=== PATIENT | male | born 1990 | race Caucasian/White ===

== ENCOUNTER 2016-11-18 11:45 | Observation (INO) | payer OTHER ==
--- NOTE | 2016-11-18 11:55 | PDOC ---
History of Present Illness - General Chief Complaint: Urinary Problem Stated Complaint: THIRST, POLYURIA Time Seen by Provider: 11/18/16 11:52 - History of Present Illness Initial Comments: 11/18/16 13:07 Presents to the ER upon referral by his orthopedic shoe maker. Worsening polyuria, polydipsia, family history of diabetes insipidus. Alert oriented no acute distress fully ambulatory. Physical exam normal. To be admitted for water depravation test. Past History - Past Medical History Allergies/Adverse Reactions: Allergies Allergy/AdvReac Type Severity Reaction Status Date / Time No Known Allergies Allergy Verified 11/18/16 11:50 Home Medications: Ambulatory Orders Desmopressin Acetate 0.5 mg PO HS 11/18/16 Finasteride 2.5 mg PO DAILY 11/18/16 Selegiline HCl 5 mg PO BID 11/18/16 ED Treatment Course - LABORATORY CBC & Chemistry Diagram: 11/18/16 12:10 11/18/16 12:10 *DC/Admit/Observation/Transfer Diagnosis at time of Disposition: Dehydration - Discharge Dispostion Condition at time of disposition: Stable Admit: Yes
[2016-11-18 11:59] VITALS: BMI 30.9
[2016-11-18 12:20] LABS: PH,URINE 5.5 (4.5-8); URINE APPEARANCE Clear; URINE BILIRUBIN Negative (NEGATIVE); URINE BLOOD Negative (NEGATIVE); URINE GLUCOSE (UA) Negative (NEGATIVE); URINE KETONE Negative (NEGATIVE); URINE LEUK ESTERASE Negative (NEGATIVE); URINE NITRITE Negative (NEGATIVE); URINE PROTEIN Negative (NEGATIVE); URINE UROBILINOGEN 0.2 E.U/dl (0.2-1.0)
[2016-11-18 12:31] LABS: URINE COLOR COLORLESS
[2016-11-18 12:34] LABS: BASOPHIL 1.3 % (0-2.0); EOSINOPHIL 2.4 % (0-4.5); MCH 29.2 pg (25.7-33.7); MCHC 33.6 g/dl (32.0-35.9); MEAN PLT VOLUME 9.4 fl (7.5-11.1); NEUTROPHILS 64.4 % (42.8-82.8); PLATELET COUNT 223 K/MM3 (134-434); RDW 12.4 % (11.9-15.9); WHITE BLOOD COUNT 4.3 K/mm3 (4.0-10.8)
[2016-11-18 12:42] LABS: ALBUMIN 4.8 g/dl (3.5-5.0); ALK PHOS 57 U/L (32-92); ANION GAP 8 (8-16); BILIRUBIN,TOTAL 0.4 mg/dl (0.2-1.0); CO2 22 mmol/L (22-28); GLUCOSE,RANDOM 94 mg/dl (74-106); SGOT/AST 25 U/L (10-42); SGPT/ALT 23 U/L (10-40); TOT PROT 7.1 g/dl (6.4-8.3)
--- NOTE | 2016-11-18 12:58 | HP ---
[id number]: patient is a 26 y/o male, with no significant past medical history. patient reports polyuria and polydipsia for the past 8 months. He was evaluated by the quote clerk Dr. Bala Mayfield and was started on desmopressin 0.5 mg at bedtime. reports drinking more than a gallon of water daily and awakes multiple times throughout the night to urinate. Patient's last dose of desmopressin was 11/16/2016 at night. Patient does report increased polyuria within the past month and was referred to the emergency department for admission. ER course was notable for: (1) urine sodium 141 (2) (3) Recent Travel: none PAST MEDICAL HISTORY: none PAST SURGICAL HISTORY:none Social History:employed as a movie writer resides at home with his [facility] Smoking: none Alcohol:none Drugs: none Family History: sister- pituitary adenoma diabetes insipidus sister- benign brain tumor Allergies No Known Allergies Allergy (Verified 11/18/16 11:50) HOME MEDICATIONS: Home Medications Medication Instructions Recorded Desmopressin Acetate 0.5 mg PO HS 11/18/16 Finasteride 2.5 mg PO DAILY 11/18/16 Selegiline HCl 5 mg PO BID 11/18/16 REVIEW OF SYSTEMS CONSTITUTIONAL: Absent: fever, chills, diaphoresis, generalized weakness, malaise, loss of appetite, weight change HEENT: Absent: rhinorrhea, nasal congestion, throat pain, throat swelling, difficulty swallowing, mouth swelling, ear pain, eye pain, visual changes CARDIOVASCULAR: Absent: chest pain, syncope, palpitations, irregular heart rate, lightheadedness , peripheral edema RESPIRATORY: Absent: cough, shortness of breath, dyspnea with exertion, orthopnea, wheezing, stridor, hemoptysis GASTROINTESTINAL: Absent: abdominal pain, abdominal distension, nausea, vomiting, diarrhea, constipation, melena, hematochezia GENITOURINARY: Absent: dysuria, frequency, urgency, hesitancy, hematuria, flank pain, genital pain MUSCULOSKELETAL: Absent: myalgia, arthralgia, joint swelling, back pain, neck pain SKIN: Absent: rash, itching, pallor HEMATOLOGIC/IMMUNOLOGIC: Absent: easy bleeding, easy bruising, lymphadenopathy, frequent infections ENDOCRINE: present polyuria Absent: unexplained weight gain, unexplained weight loss, heat intolerance, cold intolerance NEUROLOGIC: Absent: headache, focal weakness or paresthesias, dizziness, unsteady gait, seizure, mental status changes, bladder or bowel incontinence PSYCHIATRIC: Absent: anxiety, depression, suicidal or homicidal ideation, hallucinations. PHYSICAL EXAMINATION Vital Signs - 24 hr 11/18/16 11:45 Temperature 98.1 F Pulse Rate 81 Respiratory 18 Rate Blood Pressure 145/93 O2 Sat by Pulse 99 Oximetry (%) GENERAL: Awake, alert, and fully oriented, in no acute distress. HEAD: Normal with no signs of trauma. EYES: Pupils equal, round and reactive to light, extraocular movements intact, sclera anicteric, conjunctiva clear. No lid lag. EARS, NOSE, THROAT: Ears normal, nares patent, oropharynx clear without exudates. Moist mucous membranes. NECK: Normal range of motion, supple without lymphadenopathy, JVD, or masses. LUNGS: Breath sounds equal, clear to auscultation bilaterally. No wheezes, and no crackles. No accessory muscle use. HEART: Regular rate and rhythm, normal S1 and S2 without murmur, rub or gallop. ABDOMEN: Soft, nontender, not distended, normoactive bowel sounds, no guarding, no rebound, no masses. No hepatomegaly or splenomegaly. MUSCULOSKELETAL: Normal range of motion at all joints. No bony deformities or tenderness. No CVA tenderness. UPPER EXTREMITIES: 2+ pulses, warm, well-perfused. No cyanosis. No clubbing. No peripheral edema. LOWER EXTREMITIES: 2+ pulses, warm, well-perfused. No calf tenderness. No peripheral edema. NEUROLOGICAL: Cranial nerves II-XII intact. Normal speech. Normal gait. PSYCHIATRIC: Cooperative. Good eye contact. Appropriate mood and affect. SKIN: Warm, dry, normal turgor, no rashes or lesions noted, normal capillary refill. Laboratory Results - last 24 hr 11/18/16 11:58 Urine Color Colorless Urine Appearance Clear Urine pH 5.5 Ur Specific [place] <= 1.005 Urine Protein Negative Urine Glucose (UA) Negative Urine Ketones Negative Urine Blood Negative Urine Nitrite Negative Urine Bilirubin Negative Urine Urobilinogen 0.2 e.u/dl Ur Leukocyte Esterase Negative ASSESSMENT/PLAN: 1) endocrine: r/o diabetes insipidus - Serum sodium urine osmolality and serum osmolality noted - Urine osmolality every hour and serum osmolality and ADH every 2 hours - when urine osmolality reaches greater than 600 discontinue water deprivation test -If urine osmolality is stable on 2-3 hourly measurements, despite raising plasma osmolarity will order desmopressin 4 mcg IV - After desmopressin administration monitor urine volume and osmolality every 30 minutes for 2 hours and recheck CMP - follow up with Dr Samayoa endocrine within 1 week F/E/N - npo ppx no ac less than 24 hour obsv dispo: requires less than 24 hour obsv Visit type - Emergency Visit Emergency Visit: Yes ED Registration Date: 11/18/16 Care time: The patient presented to the Emergency Department on the above date and was hospitalized for further evaluation of their emergent condition. - New Patient This patient is new to me today: Yes Date on this admission: 11/18/16 - Critical Care Critical Care patient: No
[2016-11-18 14:20] VITALS: BP 177/90; PULSE 104; TEMP 98
[2016-11-18 14:51] LABS: CALCIUM 9.3 mg/dl (8.4-10.2); COCKROFT - GAULT 158.43; CREATININE 1.1 mg/dl (0.6-1.3)
[2016-11-18 15:29] LABS: OSMOLALITY,SERUM 298 mosm/kg (278-305)
[2016-11-18] MEDS ORDERED: DESMOPRESSIN ACETATE 4 MCG/ML AMP IVPB ONE (19:02)
[2016-11-18] MEDS ORDERED: ONDANSETRON *ODT* 4 MG TABLET SL ONE (19:05)
[2016-11-18 23:08] LABS: OSMOLALITY,SERUM 309 mosm/kg (278-305)
[2016-11-19 00:31] LABS: ALBUMIN 4.5 g/dl (3.4-5.0); ALK PHOS 69 U/L (45-117); ANION GAP 14 (8-16); BILIRUBIN,TOTAL 0.8 mg/dL (0.2-1.0); CALCIUM 9.3 mg/dL (8.5-10.1); CO2 19 mmol/L (21-32); COCKROFT - GAULT 174.27; GLUCOSE,RANDOM 101 mg/dL (74-106); SGOT/AST 22 U/L (15-37); SGPT/ALT 34 U/L (12-78); TOT PROT 7.8 g/dl (6.4-8.2)
[2016-11-26 00:07] LABS: ANTIDIURETIC HORMONE 9.2 pg/mL (0.0-4.7)
[2016-11-26 00:07] LABS: ANTIDIURETIC HORMONE 4.5 pg/mL (0.0-4.7)
== END 2016-11-18 22:10 | disposition home or self-care (01) ==
LOC: FER 11:45 → FM/S 13:09
PROVIDERS: ADMIT Internal Medicine; ATTEND Nurse Practitioner Family
PROC: 3E033GC Introduction of Other Therapeutic Substance into Peripheral Vein, Percutaneous Approach (ICD-10-PCS; principal; 2016-11-18)
DX: E86.0 Dehydration (principal)
CPT/HCPCS: 36415; 80048; 80053; 81003; 83930; 83935; 84588; 85025; 99285-25; G0378; J2597